=== PATIENT | female | born 1970 | race Caucasian/White ===

== ENCOUNTER 2025-03-06 23:42 | Emergency (ER) | payer OTHER ==
[~2025-03-06] VITALS: Ht 165.1 cm; Wt 77.1 kg
[~2025-03-06 23:42] MED LIST: OXYACE5T PO; TOBR.3OPO OP
[2025-03-07] MEDS ORDERED: AMOCLA875 PO (00:13)
== END 2025-03-07 00:12 | disposition home or self-care (01) ==
LOC: ER 23:42
DX: S61.451A Open bite of right hand, initial encounter (principal); S60.221A Contusion of right hand, initial encounter; Z88.0 Allergy status to penicillin; Z79.899 Other long term (current) drug therapy; W55.01XA Bitten by cat, initial encounter; W55.03XA Scratched by cat, initial encounter
CPT/HCPCS: 99282; A9270